=== PATIENT | male | born 1965 | race Two or more races ===

== ENCOUNTER 2018-12-29 11:02 | Emergency (ER) | payer OTHER ==
[~2018-12-29] VITALS: Ht 175.3 cm; Wt 117.9 kg
[2018-12-29 11:02] VITALS: BP 152/87
[2018-12-29] MEDS ORDERED: IBUPROFEN 600 MG TABLET PO ONE ×2 (12:00→12:52)
== END 2018-12-29 14:51 | disposition home or self-care (01) ==
LOC: ER 11:02
DX: S90.32XA Contusion of left foot, initial encounter (principal); M23.91 Unspecified internal derangement of right knee; F10.10 Alcohol abuse, uncomplicated; Y90.9 Presence of alcohol in blood, level not specified; W01.198A Fall on same level from slipping, tripping and stumbling with subsequent striking against other object, initial encounter; Y93.89 Activity, other specified; Y92.89 Other specified places as the place of occurrence of the external cause; Y99.8 Other external cause status
CPT/HCPCS: 73562; 29505; 73650; 99283; J7030